=== PATIENT | female | born 1985 ===

== ENCOUNTER 2017-06-11 15:23 | Emergency (ER) | payer OTHER ==
[2017-06-11 15:35] VITALS: BP 127/84; PULSE 92; RESP 18; TEMP 98.5; O2SAT 99
[2017-06-11] MEDS ORDERED: Alum-Mag Hydrox-Simethicone Susp (30 mL) PO STA (16:23)
[2017-06-11] MEDS ORDERED: Alum-Mag Hydrox-Simethicone Susp (30 mL) ONE (16:30)
[2017-06-11 17:06] LABS: HEMOGLOBIN 14.7 g/dL (12.0-16.0); MEAN CELL VOLUME 92.8 fl (81.0-99.0); MEAN CORPUSCULAR HEMOGLOBIN 30.6 pg (27.0-31.0); MEAN CORPUSCULAR HGB CONC 32.9 g/dL (33.0-37.0); RBC 4.8 Mil/uL (3.80-5.20); RED CELL DISTRIBUTION WIDTH 13.7 % (11.5-14.5)
[2017-06-11 17:12] LABS: ALB/GLOB RATIO 1.1 (1.0-2.1); ALBUMIN 3.8 g/dL (3.5-5.0); ALT/SGPT 38 U/L (9-52); AST/SGOT 18 U/L (14-36); BLOOD UREA NITROGEN 9 mg/dl (7-17); CALCIUM 9.1 mg/dL (8.4-10.2); GFR AFRICAN-AMERICAN > 60; GFR NON-AFRICAN AMERICAN > 60; LIPASE 43 U/L (23-300)
--- NOTE | 2017-06-11 18:06 | ED PDOC ---
HPI: CCC, URI, Sore Throat Time Seen by Provider: 06/11/17 18:03 Chief Complaint (Nursing): Headache Chief Complaint (Provider): Cough, abdominal pain History Per: Patient History/Exam Limitations: no limitations Onset/Duration Of Symptoms: Days Current Symptoms Are (Timing): Still Present Location Of Pain: Diffuse Myalgias, Headache Sick Contacts (Context): None Associated Symptoms: Cough, Myalgias. denies: Fever, Sore Throat, Sputum, Vomiting, Diarrhea Ear Symptoms: Bilateral: None Additional Complaint(s): 31 yo female presents with cough for 2 days. Pt states last time she had a cough it got worse and she got "medication" from her PMD. Pt not sure what medications. PT states she came today so that it did not get worse. Pt denie fever/chills. Pt also reports headaches on/off for a few months. States she has not been taking any medications for headache at home. Pt also reports epigastric pain today without N/V/D. Past Medical History Reviewed: Historical Data, Nursing Documentation, Vital Signs Vital Signs: Last Vital Signs Temp 98.5 F 06/11/17 15:33 Pulse 92 H 06/11/17 15:33 Resp 18 06/11/17 15:33 BP 127/84 06/11/17 15:33 Pulse Ox 99 06/11/17 15:33 - Medical History PMH: Migraine Denies: Chronic Kidney Disease (Denies) - Surgical History Surgical History: Cholecystectomy - Family History Family History: States: No Known Family Hx - Living Arrangements Living Arrangements: With Family - Social History Current smoker - smoking cessation education provided: No - Home Medications Home Medications: Ambulatory Orders Medication Instructions Recorded Guaifen/Phenyleph/Acetaminophn 1 tab PO BID #14 tab 06/11/17 [Mucinex Fast-Max Cold & Sinus 325 mg-200 mg-5] - Allergies Allergies/Adverse Reactions: Allergies Allergy/AdvReac Type Severity Reaction Status Date / Time No Known Allergies Allergy Verified 06/11/17 15:32 Review of Systems ROS Statement: Except As Marked, All Systems Reviewed And Found Negative Constitutional: Negative for: Fever, Chills Cardiovascular: Negative for: Chest Pain Respiratory: Positive for: Cough. Negative for: Shortness of Breath Gastrointestinal: Positive for: Abdominal Pain. Negative for: Nausea, Vomiting , Diarrhea Neurological: Positive for: Headache. Negative for: Altered Mental Status, Dizziness Physical Exam - Reviewed Nursing Documentation Reviewed: Yes Vital Signs Reviewed: Yes - Physical Exam Appears: Positive for: Well, Non-toxic, No Acute Distress Head Exam: Positive for: ATRAUMATIC, NORMAL INSPECTION, NORMOCEPHALIC Skin: Positive for: Normal Color, Warm, DRY Eye Exam: Positive for: EOMI, Normal appearance, PERRL ENT: Positive for: Normal ENT Inspection Neck: Positive for: Normal, Painless ROM Cardiovascular/Chest: Positive for: Regular Rate, Rhythm Respiratory: Positive for: Normal Breath Sounds. Negative for: Accessory Muscle Use, Respiratory Distress Gastrointestinal/Abdominal: Positive for: Normal Exam, Bowel Sounds, Soft. Negative for: Tenderness Back: Positive for: Normal Inspection Extremity: Positive for: Normal ROM. Negative for: Tenderness Neurologic/Psych: Positive for: Alert, Oriented - Laboratory Results Result Diagrams: 06/11/17 16:50 06/11/17 16:50 - ECG O2 Sat by Pulse Oximetry: 99 Disposition - Clinical Impression Clinical Impression: Headache, Abdominal pain, Cough - Patient ED Disposition Is Patient to be Admitted: No - Disposition Disposition: Routine/Home Disposition Time: 18:07 Condition: GOOD Prescriptions: Guaifen/Phenyleph/Acetaminophn [Mucinex Fast-Max Cold & Sinus 325 mg-200 mg-5] 1 tab PO BID #14 tab Instructions: Upper Respiratory Infection (ED) Forms: [facility] (French)
== END 2017-06-11 18:33 | disposition home or self-care (01) ==
LOC: H.ER 15:23
DX: J06.9 Acute upper respiratory infection, unspecified (principal)

== ENCOUNTER 2017-11-14 23:54 | Emergency (ER) | payer OTHER ==
[2017-11-15] MEDS ORDERED: Famotidine 20mg/50ml 20 MG/50 ML BAG IVPB STA (00:19)
[2017-11-15] MEDS ORDERED: Sodium Chloride 0.9% 2,000 ML IV STA (00:19)
--- NOTE | 2017-11-15 00:22 | ED PDOC ---
HPI: Abdomen Time Seen by Provider: 11/15/17 00:20 Chief Complaint (Nursing): Abdominal Pain Chief Complaint (Provider): vomiting/diarrhea/abd pain History Per: Patient (32 y/o female here for evaluation of vomiting/diarrhea/ epigastric pain x 2 days. Patient states her daughter was ill with similar symptoms but notes shorter duration of symnptoms and associated with fever. Patient has h/o cholecystectomy. Has tried pepto bismal without relief. No vaginal bleeding. ABdominal discomfort noted upper abdomen.) Past Medical History Reviewed: Historical Data, Nursing Documentation, Vital Signs Vital Signs: Last Vital Signs Temp 98.0 F 11/15/17 04:28 Pulse 81 11/15/17 04:28 Resp 18 11/15/17 04:28 BP 127/76 11/15/17 04:28 Pulse Ox 96 11/18/17 14:26 - Medical History PMH: Gall Bladder Disease, Migraine Denies: Chronic Kidney Disease (Denies) - Surgical History Surgical History: Cholecystectomy - Family History Family History: States: No Known Family Hx - Home Medications Home Medications: Ambulatory Orders Medication Instructions Recorded Guaifen/Phenyleph/Acetaminophn 1 tab PO BID #14 tab 06/11/17 [Mucinex Fast-Max Cold & Sinus 325 mg-200 mg-5] Ondansetron ODT [Zofran ODT] 4 mg PO Q8 PRN #10 odt 11/15/17 Vit Calc,Iron,Folic 1 each PO DAILY #15 tablet 11/15/17 [ Vitamins] - Allergies Allergies/Adverse Reactions: Allergies Allergy/AdvReac Type Severity Reaction Status Date / Time No Known Allergies Allergy Verified 11/14/17 23:58 Review of Systems ROS Statement: Except As Marked, All Systems Reviewed And Found Negative Gastrointestinal: Positive for: Vomiting, Abdominal Pain, Diarrhea Physical Exam - Reviewed Nursing Documentation Reviewed: Yes Vital Signs Reviewed: Yes - Physical Exam Appears: Positive for: Well, Non-toxic, No Acute Distress Head Exam: Positive for: ATRAUMATIC, NORMAL INSPECTION, NORMOCEPHALIC Skin: Positive for: Normal Color, Warm, DRY Eye Exam: Positive for: EOMI, Normal appearance, PERRL ENT: Positive for: Normal ENT Inspection Neck: Positive for: Normal, Painless ROM Cardiovascular/Chest: Positive for: Regular Rate, Rhythm Respiratory: Positive for: CNT, Normal Breath Sounds Gastrointestinal/Abdominal: Positive for: Normal Exam, Soft, Tenderness ( epigastric tenderness) Back: Positive for: Normal Inspection Extremity: Positive for: Normal ROM Neurologic/Psych: Positive for: Alert, Oriented - Laboratory Results Result Diagrams: 11/15/17 00:32 11/15/17 00:32 Urine POC: Positive Urine dip results: Positive for: Blood. Negative for: Leukocyte Esterase, Nitrate, Ketones - ECG O2 Sat by Pulse Oximetry: 96 - Progress ED Course And Treament: Zofran 8mg ODT NS 2 liters wide open Disposition - Clinical Impression Clinical Impression: Gastroenteritis, Hyperemesis gravidarum - Patient ED Disposition Is Patient to be Admitted: No - Disposition [facility] Tito Muniz MD [Primary Care Provider] - Disposition: Routine/Home Disposition Time: 04:37 Condition: FAIR Prescriptions: Ondansetron ODT [Zofran ODT] 4 mg PO Q8 PRN #10 odt PRN Reason: Nausea/Vomiting Vit Calc,Iron,Folic [ Vitamins] 1 each PO DAILY #15 tablet Instructions: Nausea and Vomiting of (DC), Gastroenteritis (ED) Forms: [facility] (Romanian), [facility] ED School/Work Excuse
[2017-11-15] MEDS ORDERED: Famotidine 20mg/50ml 20 MG/50 ML BAG IVPB ONE (00:36)
[2017-11-15 00:56] LABS: BASO % 0.5 % (0.0-2.0); EOS % 0.7 % (0.0-4.0); HEMOGLOBIN 14.4 g/dL (12.0-16.0); LYMPH # 2.4 K/uL (1.0-4.3); MEAN CELL VOLUME 92.1 fl (81.0-99.0); MEAN CORPUSCULAR HEMOGLOBIN 30.8 pg (27.0-31.0); MEAN CORPUSCULAR HGB CONC 33.5 g/dL (33.0-37.0); MEAN PLATELET VOLUME 6.6 fl (7.2-11.7); MONO # 0.4 K/uL (0.0-0.8); MONO % 6.9 % (0.0-10.0); NEUT # 3.3 K/uL (1.8-7.0); NEUT % 52.9 % (50.0-75.0); NRBC % 0.1 % (0.0-0.0); RBC 4.69 Mil/uL (3.80-5.20); RED CELL DISTRIBUTION WIDTH 13.2 % (11.5-14.5); WHITE BLOOD COUNT 6.1 K/uL (4.8-10.8)
[2017-11-15 01:51] LABS: BLOOD UREA NITROGEN 10 mg/dl (7-17); GFR AFRICAN-AMERICAN > 60; GFR NON-AFRICAN AMERICAN > 60
[2017-11-15 01:52] LABS: ALB/GLOB RATIO 1.1 (1.0-2.1); ALBUMIN 3.8 g/dL (3.5-5.0); ALT/SGPT 41 U/L (9-52); AST/SGOT 43 U/L (14-36); CALCIUM 8.5 mg/dL (8.4-10.2)
[2017-11-15 01:53] LABS: LIPASE 33 U/L (23-300)
[2017-11-15] MEDS ORDERED: Potassium Chloride 20 mEq ER Tab PO STA (02:22)
[2017-11-15] MEDS ORDERED: Potassium Chloride 20 mEq ER Tab PO ONE (03:45)
[2017-11-15 04:29] VITALS: BP 127/76; PULSE 81; RESP 18; TEMP 98
[2017-11-18 14:26] VITALS: O2SAT 96
== END 2017-11-15 04:45 | disposition home or self-care (01) ==
LOC: H.ER 23:54
DX: K52.9 Noninfective gastroenteritis and colitis, unspecified (principal); O21.0 Mild hyperemesis gravidarum
CPT/HCPCS: 80053; 81025; 83690; 84702; 85025; 96361; 96365; 99284; J7030

== ENCOUNTER 2018-05-28 15:38 | Emergency (ER) | payer OTHER ==
[2018-05-28 16:12] VITALS: BMI 54.8
--- NOTE | 2018-05-28 17:34 | OBHP ---
Datetime: 05/28/2018 16:40 IP Adm Impression: , intrauterine IP Admit Plan: Observation/Evaluation; Discharge home Admit Comment, IP Provider: 32 yo with IUP at 33+4 weeks bassed on ARPIT of 07/12/18 presents t o [facility] because of low bilateral back pain that began midday today. This pain is associated with 2 epi sodes of vomitus, NBNB. Patient states she has been experiencing abdominal pain- burning and pressure like in nature all over the abdomen. She states that she has also begun to experience shortness of b reath that began 2 days ago associated with palpitations which all occur when she is lying flat. Mason es vaginal bleeding, contractions, loss of fluid per the vagina, dysuria, diarrhea, fevers, chills or sick contacts at home. documentation not provided. ROS: all else negative except for stated above in the HPI. OBGYNhx: [facility] [place]. -1 normal spontaneous vaginal delivery- female weighed 5lbs and 10 oz. No complications. PMH: Denies Meds: PNV Allergies: Denies Surghx: Cholecystectomy in 2010 without complications. Famhx: Father with DM2 and mother with HTN and hypercholesterolemia. No history of heart disease i n family. Sochx: Denies cigarette, EtOH or elicit drug use VS: 90/59 HR: 88 BMI of 54 Gen: Obese female laying in supine position breathing comfortably, no acute distress Cardio: s1s2, no murmurs, gallops or rubs. Lungs: good respiratory effort. Clear to auscultation bilaterally. No wheezes, rhonchi or Abd: Gravid, BS+, nontender to palpation, normoactive bowel sounds appreciated in all four quadran ts. Negative CVA tenderness. Back exam: non-tender to palpation on spinous process and paraspinal muscles. Vaginal exam: Performed with register in chancery, Dr. Tamayo; Closed, long and posterior at 4:28 Ext: calves nontender, nonedematous EFM: 145 baseline; Moderate variability; Accelerations present; No decelerations; Category 1 react scott tracing. [place]: No contractions appreciated. A/P: 32 yo with IUP at 33+4 weeks bassed on ARPIT of 07/12/18 presents to [facility] because of low bilateral back pain that began midday today - Po tolerance with clear liquids - Reactive heart tracing - Continue NST monitoring - Continue to monitor vitals. - Possible need for E.D. evaluation for shortness of breath and palpitations. Patient reassessed at 17:05, patient has been vitally stable and tolerating PO liquids without julian sea or vomiting. Denies chest pain and shortness of breath at this time. Given stable vital signs, BP : 102/79 ; HR: 75-80's and no symptomatology at this time, patient is stable for discharge home. Patient given discharge instructions and ED precautions were given including if shortness of breat h worsens and is present when sitting up to seek medical attention in an E.R. Case discussed with OB attending Wen Benítez, PGY1 OB Hospitalist Addendum: 32 yo at 33+4 wks c/o sharp pain in nack w/ 2 episodes of vomitin g today, also c/o burning sensation in abdomen. PT denies nausea, tolerated apple juice and crackers here. Pt denies ctxns, VB, LOF and reports good FM. Pt aslo c/o SOB w/ heart palpitations w/ lying down. VSS Oxygen sat 97% NST reactive. Pt appears to be lying confortably in bed. Pt discharged home. Pt told to go to ED if sx of SOB worsen. Pt to f/u w/ her OB, Surekha Parson. (ES) Pelvic Type - PN: Adequate Extremities - PN: Normal Abdomen - PN: Normal Back - PN: Normal Breast - PN: Not Done Lungs - PN: Normal Heart - PN: Normal Thyroid - PN: Not Done Neurologic - PN: Normal HEENT - PN: Not Done General - PN: Normal FHR - Baseline A Provider: 145 Comments, ACOG Physical Exam: VS: 90/59 HR: 88 BMI of 54 Gen: Obese female laying in supine position breathing comfortably, no acute distress Cardio: s1s2, no murmurs, gallops or rubs. Lungs: good respiratory effort. Clear to auscultation bilaterally. No wheezes, rhonchi or Abd: Gravid, BS+, nontender to palpation, normoactive bowel sounds appreciated in all four quadran ts. Negative CVA tenderness. Back exam: non-tender to palpation on spinous process and paraspinal muscles. Vaginal exam: Performed with register in chancery, Dr. Tamayo; Closed, long and posterior at 4:28 Ext: calves nontender, nonedematous EFM: 145 baseline; Moderate variability; Accelerations present; No decelerations; Category 1 react scott tracing. [place]: No contractions appreciated. EGA AdmitDate IP: 33.4 Vital Signs Provider: Reviewed; Within Normal Limits IP Chief Complaint: Maternal discomfort NICHD Variability Prov Fetus A: Moderate 6-25bpm NICHD Accel Fetus A IP Provider: 15X15 FHR Category Provider Fetus A: Category I NICHD Decel Fetus A IP Provider: None Dilatation, Provider: closed Effacement, Provider: long-posterior Genitourinary Exam: Normal DTRs - PN: Not Done
--- NOTE | 2018-05-28 17:35 | OBDCSUM ---
Datetime: 05/28/2018 17:08 Discharged to, Provider: Home Follow up at, Provider: Dr. Surekha Zaidi Instr Activity: Normal activity Disch Instr Diet: Regular Discharge Time: 05/28/2018 17:32 Follow up in weeks, Provider: tomorrow Disch Referrals: None Disch Activity Restrictions: No exercising; No sexual activity; Nothing in vagina - [place], youssef deon jaffe Discharge Diagnosis Prov Other: Maternal discomfort
[2018-05-29 13:02] VITALS: BP 90/59; PULSE 78; RESP 20; TEMP 97.5; O2SAT 98
== END 2018-05-28 17:20 | disposition home or self-care (01) ==
LOC: H.EROB2 15:38
DX: O26.93 Pregnancy related conditions, unspecified, third trimester (principal); M54.5 Low back pain; R10.2 Pelvic and perineal pain; O21.0 Mild hyperemesis gravidarum; R06.02 Shortness of breath; R00.2 Palpitations; Z3A.33 33 weeks gestation of pregnancy

== ENCOUNTER 2018-06-07 00:08 | Emergency (ER) | payer OTHER ==
[2018-06-07] MEDS ORDERED: Lactated Ringer's 1,000 ML IV SCH (01:15)
[2018-06-07 01:43] LABS: ALB/GLOB RATIO 0.9 (1.0-2.1); ALBUMIN 3.3 g/dL (3.5-5.0); ALT/SGPT 27 U/L (9-52); AST/SGOT 20 U/L (14-36); BLOOD UREA NITROGEN 10 mg/dl (7-17); CALCIUM 8.6 mg/dL (8.4-10.2); GFR NON-AFRICAN AMERICAN > 60
--- NOTE | 2018-06-07 08:17 | OBDCSUM ---
Datetime: 06/07/2018 02:43 Discharged to, Provider: Home Follow up at, Provider: [facility] Disch Instr Activity: Bedrest Disch Instr Diet: Regular Discharge Time: 06/07/2018 02:43 Follow up in weeks, Provider: 06/13/2018 Disch Referrals: None Disch Activity Restrictions: No lifting; No driving; Minimize walking; Minimize stair-climbing Discharge Diagnosis Prov Other: Nauesa in preg
--- NOTE | 2018-06-07 08:18 | OBHP ---
Datetime: 06/07/2018 01:00 IP Adm Impression: , intrauterine ; No Active Labor IP Chief Complaint Other: Nausea, vomiting, diarrhea IP Admit Plan: Observation/Evaluation Admit Comment, IP Provider: 32 yo , 35.0 wks bassed on ARPIT of 07/12/18 presents to [facility] melissa grullon with vomiting and diarrhea. Nausea/vomiting started 11 am today, about 10 episodes of non bloody vo miting and >5 episodes of nonbloody diarrhea. Pt denies eating any outside food or any sick contacts. Denies CTx, VB or LOF. Endorses good FM. Denies F/CP, SOB, dysuria, back pain. documentatio n not provided. ROS: all else negative except for stated above in the HPI. care: [facility] [place]. OBGYNhx: 1 - female weighed 5lbs and 10 oz. No complications. PMH: Denies Meds: PNV Allergies: Denies Surghx: Cholecystectomy in 2010 without complications. Famhx: Father with DM2 and mother with HTN and hypercholesterolemia. No history of heart disease i n family. Sochx: Denies cigarette, EtOH or elicit drug use VSS except for Tachycardia Gen: Obese female laying in supine position breathing comfortably, NAD Cardio: s1s2, no murmurs, gallops or rubs. Lungs: CTAB, No wheezing Abd: Gravid, BS+, nontender to palpation, Negative CVA tenderness. Back exam: NO CVA tenderness Ext: calves nontender, nonedematous EFM: 150 baseline; Moderate variability; Accelerations present; No decelerations; Category 1 react scott tracing. [place]: No contractions appreciated. A/P: 32 yo with IUP at 35.0 weeks bassed on ARPIT of 07/12/18 presents to [facility] with [place], v omiting and diarrhea. - LR 1L @ 999 ml/hr - ZOfran 4 mg IVP stat - CMP stat ordered, - Reactive heart tracing - Continue NST monitoring - Continue to monitor vitals. Case discussed with OB attending Alexander Astorga, PGY1 OB Hospitalist on-call. . With PGY1, case was discussed about this pt. Agree with note MAHNDO Pelvic Type - PN: Not Done Extremities - PN: Normal Abdomen - PN: Normal Back - PN: Normal Breast - PN: Not Done Lungs - PN: Normal Heart - PN: Normal Thyroid - PN: Not Done Neurologic - PN: Normal HEENT - PN: Normal General - PN: Normal FHR - Baseline A Provider: 150 Comments, ACOG Physical Exam: VSS except for Tachycardia Gen: NAD Cardio: s1s2, no murmurs, gallops or rubs. Lungs: CTAB, No wheezing Abd: Gravid, BS+, nontender to palpation, Negative CVA tenderness. Back exam: NO CVA tenderness Ext: calves nontender, nonedematous EGA AdmitDate IP: 35.0 Vital Signs Provider: Reviewed IP Chief Complaint: Other NICHD Variability Prov Fetus A: Moderate 6-25bpm NICHD Accel Fetus A IP Provider: 15X15 FHR Category Provider Fetus A: Category I Genitourinary Exam: Not Done DTRs - PN: Not Done
[2018-06-07 08:30] VITALS: BP 104/73; PULSE 95
== END 2018-06-07 03:00 | disposition home or self-care (01) ==
LOC: H.EROB2 00:08
DX: O99.89 Other specified diseases and conditions complicating pregnancy, childbirth and the puerperium (principal); O21.0 Mild hyperemesis gravidarum; R19.7 Diarrhea, unspecified; Z3A.35 35 weeks gestation of pregnancy
CPT/HCPCS: 80053; 96374; 99283; J2405; J7120

== ENCOUNTER 2018-07-14 23:25 | Inpatient (IN) | payer OTHER ==
[2018-07-15] MEDS ORDERED: Lactated Ringer's 1,000 ML IV ONE (00:18)
[2018-07-15] MEDS ORDERED: Oxytocin 30 UNIT 30 UNITS/500 ML BAG IV ONE (00:22)
[2018-07-15] MEDS ORDERED: OXYTOCIN/0.9 % NS 20 UNIT/1,000 ML BAG IV SCH (00:30)
[2018-07-15] MEDS ORDERED: Lactated Ringer's 1,000 ML IV SCH (00:30)
--- NOTE | 2018-07-15 01:02 | OBADHP ---
Datetime: 07/15/2018 00:28 Admit Comment, IP Provider: 32 yo , 40+2 wks based on ARPIT of 07/12/18 presents to [facility] for CTX and bloody show that began at 12pm day prior to admission. Denies VB or LOF. Endorses good FM. Denie s CP, SOB, dysuria. ROS: all else negative except for stated above in the HPI. care: [facility] [place] OBGYNhx: 1 - female weighed 5lbs and 10 oz. No complications. 1 surgical three years ago. No complications PMH: Denies Meds: PNV Allergies: Denies Surghx: Cholecystectomy in 2010 without complications. Famhx: Father with DM2 and mother with HTN and hypercholesterolemia. No history of heart disease i n family. Sochx: Denies cigarette, EtOH or elicit drug use Labs: HIV: neg; GBS: neg; RPR: non-reactive; ABO: O+; antibody: neg; rubella: unknown; HbsAg: neg Vital signs stable Gen: Obese female laying in supine position breathing comfortably, NAD Cardio: s1s2, no murmurs, gallops or rubs. Lungs: CTAB, No wheezing Abd: Gravid, BS+, nontender to palpation, Negative CVA tenderness. Back exam: NO CVA tenderness Ext: calves nontender, nonedematous EFM: 145 baseline; Moderate variability; Accelerations present; No decelerations; Category 1 react scott tracing. SVE: 5cm/ 80 %/ -1 station A/P: 32 yo with IUP at 40+2 weeks based on ARPIT of 07/12/18 admitted for labor. - Admit to L and D - CBC, Type and Screen - Rubella, HBsAg - Anesthesia Consult - LR @ 250mls/hr for maintanence - NPO - Reactive heart tracing - Continue NST monitoring - Continue to monitor vitals. Case discussed with Dr. Sharon Benítez, PGY1 Addendum by Dr. espinoza: I have evalauted the patient independently and I agree with the above Pelvic Type - PN: Adequate Extremities - PN: Normal Abdomen - PN: Normal Back - PN: Normal Breast - PN: Not Done Lungs - PN: Normal Heart - PN: Normal Thyroid - PN: Normal Neurologic - PN: Normal HEENT - PN: Normal General - PN: Normal FHR - Baseline A Provider: 145 Vital Signs Provider: Reviewed; Within Normal Limits IP Chief Complaint: Uterine contractions; Maternal discomfort NICHD Variability Prov Fetus A: Moderate 6-25bpm NICHD Accel Fetus A IP Provider: 15X15 FHR Category Provider Fetus A: Category I NICHD Decel Fetus A IP Provider: None Dilatation, Provider: 5 Effacement, Provider: 80 Station, Provider: -1 Genitourinary Exam: Normal DTRs - PN: Normal EGA AdmitDate IP: 40.3 IP Adm Impression: Term, intrauterine IP Admit Plan: Admit to unit; Initiate labor protocol Datetime: 06/07/2018 01:00 IP Chief Complaint Other: Nausea, vomiting, diarrhea Comments, ACOG Physical Exam: VSS except for Tachycardia Gen: NAD Cardio: s1s2, no murmurs, gallops or rubs. Lungs: CTAB, No wheezing Abd: Gravid, BS+, nontender to palpation, Negative CVA tenderness. Back exam: NO CVA tenderness Ext: calves nontender, nonedematous
[2018-07-15 01:23] LABS: BASO % 0.4 % (0.0-2.0); EOS # 0.1 K/uL (0.0-0.7); EOS % 0.6 % (0.0-4.0); HEMOGLOBIN 12.6 g/dL (12.0-16.0); LYMPH # 2.9 K/uL (1.0-4.3); LYMPH % 36.8 % (20.0-40.0); MEAN CELL VOLUME 89.2 fl (81.0-99.0); MEAN CORPUSCULAR HEMOGLOBIN 28.9 pg (27.0-31.0); MEAN CORPUSCULAR HGB CONC 32.4 g/dL (33.0-37.0); MEAN PLATELET VOLUME 8.1 fl (7.2-11.7); MONO # 0.3 K/uL (0.0-0.8); MONO % 4.3 % (0.0-10.0); NEUT # 4.6 K/uL (1.8-7.0); NEUT % 57.9 % (50.0-75.0); RBC 4.35 Mil/uL (3.80-5.20); RED CELL DISTRIBUTION WIDTH 14.5 % (11.5-14.5); WHITE BLOOD COUNT 7.9 K/uL (4.8-10.8)
[2018-07-15] MEDS ORDERED: Lidocaine 1% MPF (30 ml) Inj ONE (01:45)
[2018-07-15] MEDS ORDERED: Benzocaine/Menthol SPRAY TOP PRN ×2 (01:54→04:08)
[2018-07-15] MEDS ORDERED: Oxycodone/Acetaminophen 5/325 mg Tab PO PRN ×3 (01:54→04:08)
--- NOTE | 2018-07-15 01:57 | OBDS ---
DELIVERY PERSONNEL Delivery Doctor: Elaine Herrera MD Human Services Program Specialist: Mark Bowers Resident: Moriah Rivera MATERNAL INFORMATION Delivery Anesthesia: Local Medications in Delivery: Oxytocin Estimated Blood Loss (ml): 100 Placenta Cultured: No Maternal Complications: None Provider Comments: of live female over intact perineum, LENI followed by shoulders and re st of , mouth and nose suctioned, cord clamped and cut, placed in warmer, cord blood obt ained, placenta delivered spontaneously, fundus firm, first degree laceration injected with Lidocaine 1% with epinephrine 10ml and reparied with 2-0 vicry rapide, EBL = 100mL LABOR SUMMARY EDC: 07/12/2018 00:00 No. Babies in Womb: 1 Attempted: No Labor Anesthesia: None LABOR INFORMATION Reason for Induction: Not Applicable Oxytocin: N/A Group B Beta Strep: Negative Steroids Given: None Reason Steroids Not Administered: Not Applicable VAGINAL DELIVERY Episiotomy: None Laceration Extension: First Degree Laceration Type: Perineal Laceration Repair: Yes Initial Vag Sponge Count: 5 Final Vag Sponge Count: 5 Initial Vag Sharps Count: 1 Final Vag Sharps Count: 1 Sponge Count Correct: Yes Sharps Count Correct: Yes Count Comment: BABY A INFORMATION Delivery Date/Time: 07/15/2018 01:42 Method of Delivery: Vaginal Born in Route : No : N/A Forceps: N/A Vacuum Extraction: N/A Shoulder Dystocia : No SHOULDER DYSTOCIA BABY A Infant Delivery Date/Time: 07/15/2018 01:42 INFORMATION BABY A Gestational Age at Delivery: 40.3 Gestational Status: Term Outcome : Liveborn Infant Condition : Stable Sex: Female
[2018-07-15 03:11] VITALS: RESP 18
[2018-07-15] MEDS: Multivitamin With Minerals Tab PO SCH (08:22)
[2018-07-15] MEDS ORDERED: Multivitamin With Minerals Tab PO SCH (09:00)
[2018-07-15] MEDS: Oxycodone/Acetaminophen 5/325 mg Tab PO PRN (21:25)
[2018-07-16 06:57] LABS: MEAN CELL VOLUME 88.3 fl (81.0-99.0); MEAN CORPUSCULAR HEMOGLOBIN 28.7 pg (27.0-31.0); MEAN CORPUSCULAR HGB CONC 32.5 g/dL (33.0-37.0); RBC 4.17 Mil/uL (3.80-5.20); RED CELL DISTRIBUTION WIDTH 14.1 % (11.5-14.5); WHITE BLOOD COUNT 9.4 K/uL (4.8-10.8)
[2018-07-16] MEDS: Multivitamin With Minerals Tab PO SCH (09:10)
--- NOTE | 2018-07-16 10:10 | OBPPN ---
Datetime: 07/16/2018 07:42 PP Pain Prov: Within normal limits PP Nausea Prov: Denies PP Flatus Prov: Yes PP BM Prov: No PP Breasts Prov: Not Done PP Heart Prov: Normal PP Lungs Prov: Normal PP Abdomen/Uterus Prov: Normal PP Lochia Prov: Normal PP Vulva/Perineum Prov: Normal PP CVA Tenderness Prov: Not Done PP Extremities Prov: Normal PP C/S Incision Prov: Not Applicable PP Progress Prov: Normal PP Impression Prov: Normal progression PP Plan Prov: Continue present management PP Progress Note Prov: S: 32 yo s/p on 07/15/18, PPD1. Pt was seen and examined at bed side this AM. No overnight events. Pain is minimal. Ambulating and tolerating PO diet without difficu lty. Breast feeding exclusively. Lochia < menses. +Flatus/- BM. Denies dizziness, orthostatic change s, changes in vision, palpitations, chest pain, fever, chills, diarrhea, nausea and vomiting. O: VS: Stable overnight GEN: NAD Cardio: S1S2, no murmurs Lungs: clear breath sounds b/l, no wheezing Abdomen: BS+, appropriate tenderness to palpation. Uterus is firm and at the level of the umbilic us. EXT: No edema, calves non-tender NEURO/PSYCH: AAOx3, no grossly focal deficits, preserved affect and mood. H/H: aCBC: 12.6 / 38.8, pCBC 12.0/36.8 Assessment/Plan: 32 yo s/p on 07/15/18, PPD1. Pt remains afebrile, tolerating pain. -Regular diet -Discharge tomorrow 07/17 -Continue with current management -Encourage and ambulating -Colace 100mg BID -Ibuprofen 600mg q6 for pain Shannalay Chowdhury pgyi Addendum by Dr. Herrera: I have evaluated the patient independently and I agree with the above Vital Signs Provider PP: Reviewed; Within Normal Limits
[2018-07-16] MEDS: Oxycodone/Acetaminophen 5/325 mg Tab PO PRN (10:58)
--- NOTE | 2018-07-16 12:17 | OBDCSUM ---
Datetime: 07/16/2018 12:16 Discharged to, Provider: Home Follow up at, Provider: OB Disch Instr Activity: Normal activity Disch Instr Diet: Regular Discharge Instructions, Provider: Routine instructions given Discharge Diagnosis, Provider: Term Delivered Discharge Time: 07/16/2018 12:16 Follow up in weeks, Provider: 6 wks Disch Referrals: None Contraception discussed, Prov: Yes
[2018-07-16 22:50] VITALS: BP 108/72; PULSE 76; TEMP 97.9; O2SAT 94
== END 2018-07-16 18:30 | disposition home or self-care (01) | DRG 373 ==
LOC: H.EROB2 23:25 → H.L&D 07-15 00:18 → H.OB/GYN 07-15 03:45
PROVIDERS: ADMIT Obstetrics & Gynecology; ATTEND Obstetrics & Gynecology
PROC: 10E0XZZ Delivery of Products of Conception, External Approach (ICD-10-PCS; principal; 2018-07-15)
PROC: 0HQ9XZZ Repair Perineum Skin, External Approach (ICD-10-PCS; 2018-07-15)
DX: O48.0 Post-term pregnancy (principal); O70.0 First degree perineal laceration during delivery; Z3A.40 40 weeks gestation of pregnancy; Z37.0 Single live birth; Z83.3 Family history of diabetes mellitus; Z90.49 Acquired absence of other specified parts of digestive tract